=== PATIENT | female | born 1985 | race Caucasian/White ===

== ENCOUNTER 2024-12-10 10:25 | Emergency (ER) | payer BC, MEDICAID ==
[~2024-12-10] VITALS: Ht 157.5 cm; Wt 100.0 kg
[2024-12-10 10:27] VITALS: TEMP 97.9
--- NOTE | 2024-12-10 10:44 | ELECTROCARDIOGRAPH REPORT ---
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 Peter Darby Measurements Intervals [place] Rate: 89 P: 78 W[place]: 150 QRS: 36 QRSD: 98 T: 0 QT: 432 QTc: 526 Interpretive Statements Sinus rhythm Low voltage, precordial leads Probable anteroseptal infarct, old Nonspecific T abnormalities, lateral leads Prolonged QT interval Electronically Signed On 12-11-2024 15:45:[address] Peter Darby Please click the below link to view image of tracing.
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
[2024-12-10 11:57] VITALS: BP 113/77; PULSE 89; RESP 18; O2SAT 99
== END 2024-12-10 11:58 | disposition home or self-care (01) ==
LOC: ER 10:26
DX: R07.9 Chest pain, unspecified (principal); Z88.8 Allergy status to other drugs, medicaments and biological substances; V43.62XA Car passenger injured in collision with other type car in traffic accident, initial encounter; Y93.89 Activity, other specified; Y92.89 Other specified places as the place of occurrence of the external cause; Y99.8 Other external cause status
CPT/HCPCS: 93005; 99283